=== PATIENT | female | born 1955 | race Caucasian/White ===

== ENCOUNTER → 2018-04-05 14:16 | Outpatient (CLI) | payer OTHER, SELFPAY ==
[2018-04-05 16:25] LABS: AST(SGOT) 105 U/L (15-37); Alanine Aminotransfer ALT/SGPT 116 U/L (13-56); Albumin, Serum 3.5 g/dL (3.2-5.0); Alkaline Phosphatase 262 U/L (45-117); Bilirubin, Direct 0.11 mg/dL (0.00-0.30); CRP 7.51 mg/L (0.0-3.0); GGTP 234 U/L (5-55); Globulin 4.3 g/dL (2.2-4.2); Protein, Total 7.8 g/dL (6.4-8.2)
[2018-04-06 20:15] LABS: Endomysial Antibody IgA Negative (Negative); Immunoglobulin A 123 mg/dL (87-352)
[2018-04-07 08:17] LABS: Anti-Mitochondrial AB 112.8 Units (0.0-20.0)
[2018-04-07 08:19] LABS: Anti-Smooth Muscle ABS 16 Units (0-19); t-Transglutaminase IgA <2 U/mL (0-3)
== END ==
PROVIDERS: Family Provider Family Medicine; PCP Family Medicine; Visit Provider Internal Medicine Gastroenterology
DX: K75.9 Inflammatory liver disease, unspecified (principal)
CPT/HCPCS: 36415; 80076; 82784; 82977; 83516; 86140; 86255

== ENCOUNTER → 2018-04-20 08:56 | Outpatient (CLI) | payer OTHER, SELFPAY ==
[2018-04-20] VITALS (10 sets, daily range): BP systolic 104–151; BP diastolic 47–88; PULSE 77–87; RESP 14–22; TEMP 37.1; O2SAT 90–97; BMI 35.4
--- NOTE | 2018-04-20 09:02 | CT_ITS ---
PROCEDURE: CT DIRECTED CORE LIVER BIOPSY INDICATION: Female, 62 years old. Hepatitis. PHYSICIAN: Dr. Fabian SANCHEZ CONSENT: Written informed consent was obtained having explained the risks, benefits and alternatives in detail with the patient who accepted the risks and agreed to proceed. Laboratory review and clinical assessment was performed. CONSCIOUS SEDATION PROTOCOL: The Drugs used were: 2 mg Versed, IV., and 50 mcg Fentanyl, IV. The sedation time was: 13 minutes. Conscious sedation was started at 10:02 AM and terminated at 10:15 AM. The conscious sedation protocol was independently monitored. RADIATION DOSAGE (If Supplied By Facility): CTDIvol = ( 15 ) mGy, DLP = ( 314.82 ) mGycm Individualized dose optimization techniques were used for this CT. TECHNIQUE: Using CT image guidance with image documentation, a suitable location in the anterior left lobe of the liver was identified. Using an anterior approach, puncture of the liver was uneventful with an 18-gauge core needle system. [id number] core samples were obtained, and submitted in formalin to the pathologist for further assessment. Followup CT scan revealed no distinct sequelae. CT/Biopsy/Inj or Needle Placement IMPRESSION: 1. CT directed core needle biopsy of the liver, using CT image guidance with image documentation as described. 2. Conscious Sedation protocol utilized with independent monitoring. Electronically Signed: Austin Peralta MD at 11:19 EDT Tel [phone], Service support ,
--- NOTE | 2018-04-20 10:15 | LIVB_PTH ---
PATIENT: CELINA STONE LOC: CT U#:[id number] AGE/SX: 70/F ROOM: RE04/20/[address]: Dr. Chad Yarbrough MD : 1955 BED: DIS: SPEC #: [id number] RECD: 04/20/18 10:31 STATUS: CAMERON LAM #: [id number] SERGIO: 04/20/18 10:[address]: Chad Yarbrough DEPT: SURGICAL PATHOLOGY RECD BY: Aramis Velasquez ENTERED: 04/20/18 12:09 SP TYPE: LIVER BX OTHR DR: Trisha Land PA-C Tissues: Liver, NOS Procedures: PAS with Diastase (control) Trichrome (control) Special Stain Group II FE Group II (charge) PAS Stain (control) Surgery Specimen Level V Retic (control) HEADER OPERATION: CT-guided liver biopsy PRE-OP DIAGNOSIS: Hepatitis TISSUE SUBMITTED: Liver 18g x3 MICROSCOPIC DIAGNOSIS Liver, CT-guided core biopsy: Consistent with primary biliary cirrhosis, the florid duct lesion; portal hepatitis. See microscopic description and comment. SJ:lane 04/21/18 COMMENT Correlation with clinical, laboratory studies and appropriate follow up are necessary. Case has been reviewed in consultation with Dr. Vigil who concurs with the above diagnosis. IDC:NAEL MICROSCOPIC DESCRIPTION Slides are reviewed. The specimen shows liver parenchymal tissue with preserved lobular architecture. The hepatocytes show reactive changes. Lobular inflammation is noted. Focal granulomas are also noted in the lobules. The portal areas show moderate to marked chronic inflammation and expanded. The inflammatory cell infiltrates predominantly consists of lymphocytes, a few plasma cells and eosinophils. Bile duct damage is noted. Significant ductular proliferation is not seen. Piecemeal necrosis is also noted. Iron stain show absent iron. PAS stain with and without diastase do not show any abnormal accumulation of protein. Reticulin stain is unremarkable. Trichrome stain highlights the expanded portal area and also shows focal bridging fibrosis. Obvious cirrhosis is not seen. GROSS DESCRIPTION Received in fixative is one container labeled with the patient's name and designated liver. The specimen consists of three elongated pieces of serrano soft tissue measuring 1.5 to 2 cm in length and 0.1 cm in diameter. The specimen is totally submitted in one cassette. / SJ:lane 04/20/18 TC:3 CPT: 41521, 44166 x5
== END ==
PROVIDERS: Family Provider Family Medicine; PCP Family Medicine; Visit Provider Internal Medicine Gastroenterology
DX: K75.9 Inflammatory liver disease, unspecified (principal); K58.0 Irritable bowel syndrome with diarrhea; F41.9 Anxiety disorder, unspecified; F32.9 Major depressive disorder, single episode, unspecified; Z79.899 Other long term (current) drug therapy; F17.200 Nicotine dependence, unspecified, uncomplicated
CPT/HCPCS: 47000; 77012; 88307; 88313; 99156; J7040; A4216

== ENCOUNTER → 2018-08-04 15:33 | Outpatient (CLI) | payer OTHER, SELFPAY ==
[2018-08-04 17:50] LABS: AST(SGOT) 22 U/L (15-37); Alanine Aminotransfer ALT/SGPT 30 U/L (13-56); Albumin, Serum 3.7 g/dL (3.2-5.0); Alkaline Phosphatase 152 U/L (45-117); Bilirubin, Direct 0.07 mg/dL (0.00-0.30); GGTP 43 U/L (5-55); Globulin 3.8 g/dL (2.2-4.2); Protein, Total 7.5 g/dL (6.4-8.2)
[2018-08-04 18:18] LABS: Hematocrit 44.1 % (37-47); Hemoglobin 14.1 g/dl (12.0-15.0); Mean Corpuscular Hgb 28.4 pg (27.0-32.0); Mean Corpuscular Volume 88.9 fL (81-99); Mean Platelet Vol. 11.7 fl (6.2-12.0); Platelet Count 340 K/mm3 (150-450); RBC Distribution Width CV 14.5 % (11.6-14.6); RBC Distribution Width SD 46.9 fl (35.1-43.9); Red Blood Count 4.96 M/mm3 (4.2-5.4); White Blood Count 9.2 K/mm3 (4.4-11.0)
[2018-08-04 18:32] LABS: Scan Indicated on CBC? Y/N NO
[2018-08-04 20:32] LABS: Erythrocyte Sedimentation Rate 20 mm/hr (0-30)
== END ==
PROVIDERS: Family Provider Family Medicine; PCP Family Medicine; Referring Provider Internal Medicine Gastroenterology; Visit Provider Internal Medicine Gastroenterology
DX: K74.3 Primary biliary cirrhosis (principal)
CPT/HCPCS: 36415; 80076; 82977; 85027; 85652

== ENCOUNTER → 2019-01-31 | Outpatient (CLI) | payer OTHER, SELFPAY ==
[2019-01-31 16:04] LABS: Hematocrit 42.9 % (37-47); Hemoglobin 13.9 g/dl (12.0-15.0); Mean Corp Hgb Conc 32.4 g/gl (32-36); Mean Corpuscular Hgb 28.3 pg (27.0-32.0); Mean Corpuscular Volume 87.2 fL (81-99); Mean Platelet Vol. 10.7 fl (6.2-12.0); Platelet Count 357 K/mm3 (150-450); RBC Distribution Width CV 14.2 % (11.6-14.6); RBC Distribution Width SD 45.1 fl (35.1-43.9); Red Blood Count 4.92 M/mm3 (4.2-5.4); White Blood Count 7.4 K/mm3 (4.4-11.0)
[2019-01-31 16:05] LABS: Scan Indicated on CBC? Y/N NO
[2019-01-31 16:10] LABS: AST(SGOT) 21 U/L (15-37); Alanine Aminotransfer ALT/SGPT 29 U/L (13-56); Albumin, Serum 3.5 g/dL (3.2-5.0); Alkaline Phosphatase 135 U/L (45-117); Bilirubin, Direct 0.09 mg/dL (0.00-0.30); GGTP 33 U/L (5-55); Globulin 3.7 g/dL (2.2-4.2); Protein, Total 7.2 g/dL (6.4-8.2)
== END | disposition home or self-care (01) ==
LOC: MTLAB 13:47
PROVIDERS: Family Provider Family Medicine; PCP Family Medicine; Referring Provider Internal Medicine Gastroenterology; Visit Provider Internal Medicine Gastroenterology
DX: K74.3 Primary biliary cirrhosis (principal)
CPT/HCPCS: 36415; 80076; 82977; 85027

== ENCOUNTER → 2019-05-28 11:13 | Outpatient (CLI) | payer MEDICARE, BC, SELFPAY ==
[2018-04-20 09:27] VITALS: BMI 35.4
[2019-05-28 12:24] LABS: Hematocrit 45.8 % (37-47); Hemoglobin 14.8 g/dL (12.0-15.0); Mean Corp Hgb Conc 32.3 g/dL (32-36); Mean Corpuscular Hgb 28.5 pg (27.0-32.0); Mean Corpuscular Volume 88.1 fL (81-99); Mean Platelet Vol. 10.6 fl (6.2-12.0); Platelet Count 335 K/mm3 (150-450); RBC Distribution Width CV 13.8 % (11.6-14.6); RBC Distribution Width SD 44.4 fl (35.1-43.9); White Blood Count 6.7 K/mm3 (4.4-11.0)
[2019-05-28 13:31] LABS: AST(SGOT) 22 U/L (15-37); Alanine Aminotransfer ALT/SGPT 26 U/L (13-56); Albumin, Serum 3.6 g/dL (3.2-5.0); Alkaline Phosphatase 155 U/L (45-117); GGTP 31 U/L (5-55); Globulin 3.8 g/dL (2.2-4.2); Protein, Total 7.4 g/dL (6.4-8.2)
== END ==
PROVIDERS: Family Provider Family Medicine; PCP Family Medicine; Referring Provider Internal Medicine Gastroenterology; Visit Provider Internal Medicine Gastroenterology
DX: K74.3 Primary biliary cirrhosis (principal)
CPT/HCPCS: 36415; 80076; 82977; 85027

== ENCOUNTER 2021-11-18 09:37 | Outpatient (CLI) | payer MEDICARE, BC, SELFPAY ==
--- NOTE | 2021-11-18 09:43 | US_ITS ---
STUDY: ABDOMINAL ULTRASOUND - RIGHT UPPER QUADRANT REASON FOR VISIT: Female, 66 years old PBC TECHNIQUE: Ultrasound evaluation of the right upper quadrant was performed with real-time and static neal-scale imaging. TECHNICAL QUALITY: Adequate. COMPARISON: None. FINDINGS: Liver: The liver measures 16 cm. There is increased echogenicity consistent with fatty infiltration. The bile ducts are within normal limits. There is hepatic color flow. The direction of portal flow is hepatopetal. There is no demonstrated mass lesion. Gallbladder: Normal distended gallbladder. The gallbladder wall measures 2.3 mm. There is a negative sonographic Barcenas''s sign. There is no pericholecystic fluid. There are no gallstones. Common Bile Duct (C.B.D.): The common bile duct measures 4.3 mm. Pancreas: Normal size of the head, body and tail of the pancreas. There is increased echogenicity of the pancreas. There is no demonstrated pancreatic mass or cyst. Right Kidney: Normal size of the right kidney. The right kidney measures 11.1 cm x 5.8 cm x 3.9 cm. Normal renal cortex. The right cortex measures 1.2 cm. There is no demonstrated renal mass or cyst. There is no right hydronephrosis. IMPRESSION: Fatty infiltration of the liver. Electronically Signed: Austin Peralta MD at 12:54 EST , STUDY: ABDOMINAL ULTRASOUND - ELASTOGRAPHY REASON FOR VISIT: Female, 66 years old. Primary biliary cirrhosis. TECHNIQUE: Liver stiffness measurements were obtained on a [employer] 85 ultrasound machine using a CA 1-7 probe following the SRU guidelines. 3 measurements were obtained using a 2-D-SWE method. TheIQR/M was 7% suggesting a quality data set. TECHNICAL QUALITY: Adequate. COMPARISON: Comparison is made with prior study done earlier today. FINDINGS: Liver: Fatty infiltration of the liver. Median liver stiffness measured 9.2 kPa. US/Abdomen Limited IMPRESSION: Liver stiffness measures 9.2 kPa compatible with F2/F3 Metavir score. Electronically Signed: Austin Peralta MD at 12:55 EST ,
== END 2021-11-18 23:59 | disposition home or self-care (01) ==
LOC: US 09:39
PROVIDERS: PCP Family Medicine; Referring Provider Internal Medicine Gastroenterology; Visit Provider Internal Medicine Gastroenterology
DX: K74.3 Primary biliary cirrhosis (principal)
CPT/HCPCS: 76705; 76981

== ENCOUNTER → 2024-02-20 | Outpatient (CLI) | payer MEDICARE, BC, SELFPAY ==
--- NOTE | 2024-02-20 10:22 | US_ITS ---
STUDY: ABDOMINAL ULTRASOUND - RIGHT UPPER QUADRANT REASON FOR VISIT: Female, 68 years old Primary biliary cirrhosis TECHNIQUE: Ultrasound evaluation of the right upper quadrant was performed with real-time and static neal-scale imaging. TECHNICAL QUALITY: Adequate. COMPARISON: Comparison is made with prior study dated November 18, 2021. FINDINGS: Liver: The liver is enlarged and measures 18.1 cm. There is increased echogenicity consistent with fatty infiltration. The bile ducts are within normal limits. There is hepatic color flow. The direction of portal flow is hepatopetal. There is no demonstrated mass lesion. Gallbladder: Normal distended gallbladder. The gallbladder wall measures 2.4 mm. There is a negative sonographic Barcenas''s sign. There is no pericholecystic fluid. There are no gallstones. Common Bile Duct (C.B.D.): The common bile duct measures 3.2 mm. Pancreas: Normal size of the head, body and tail of the pancreas. There is increased echogenicity of the pancreas. There is no demonstrated pancreatic mass or cyst. Right Kidney: Normal size of the right kidney. The right kidney measures 11.3 cm x 4.4 cm x 4.5 cm. Normal renal cortex. The right cortex measures 1.3 cm. There is no demonstrated renal mass or cyst. There is no right hydronephrosis. US/Abdomen Limited IMPRESSION: Mild hepatomegaly and fatty infiltration of the liver. Electronically Signed: Austin Peralta MD at 12:37 EDT ,
== END | disposition home or self-care (01) ==
PROVIDERS: PCP Family Medicine; Referring Provider Family Medicine; Visit Provider Family Medicine
DX: K74.3 Primary biliary cirrhosis (principal)
CPT/HCPCS: 76705

== ENCOUNTER → 2024-03-13 | Outpatient (CLI) | payer MEDICARE, BC, SELFPAY ==
[2024-03-13 18:13] LABS: Erythrocyte Sedimentation Rate 11 mm/hr (0-30)
[2024-03-13 18:46] LABS: AST(SGOT) 17 U/L (15-37); Alanine Aminotransfer ALT/SGPT 18 U/L (13-56); Albumin, Serum 3.5 g/dL (3.2-5.0); Alkaline Phosphatase 152 U/L (45-117); Globulin 3.5 g/dL (2.2-4.2)
[2024-03-15 08:12] LABS: GGTP 16 IU/L (0-60)
== END | disposition home or self-care (01) ==
LOC: MTLAB 15:29
PROVIDERS: PCP Family Medicine; Referring Provider Internal Medicine Gastroenterology; Visit Provider Internal Medicine Gastroenterology
DX: K74.3 Primary biliary cirrhosis (principal)
CPT/HCPCS: 36415; 80076; 82977; 85652

== ENCOUNTER → 2024-08-10 | Outpatient (CLI) | payer MEDICARE, BC, SELFPAY ==
--- NOTE | 2024-08-10 09:56 | US_ITS ---
STUDY: ABDOMINAL ULTRASOUND - RIGHT UPPER QUADRANT; ELASTOGRAPHY REASON FOR VISIT: Female, 69 years old. Fatty infiltration of the liver. TECHNIQUE: Ultrasound evaluation of the right upper quadrant was performed with real-time and static neal-scale imaging. Point quantification shear wave elastography was performed ([employer]). TECHNICAL QUALITY: Adequate. COMPARISON: Comparison is made with prior study dated February 20, 2024. FINDINGS: Liver: The liver measures 15.5 cm. There is increased echogenicity consistent with fatty infiltration. The bile ducts are within normal limits. There is hepatic color flow. The direction of portal flow is hepatopetal. There is no demonstrated mass lesion. Median liver stiffness measured 8.3 kPa. Gallbladder: Normal distended gallbladder. The gallbladder wall measures 2.0 mm. There is a negative sonographic Barcenas''s sign. There is no pericholecystic fluid. There are no gallstones. Common Bile Duct (C.B.D.): The common bile duct measures 5.2 mm. Pancreas: There is normal echogenicity of the visualized pancreas. There is no demonstrated pancreatic mass or cyst. Right Kidney: Normal size of the right kidney. The right kidney measures 11.1 cm x 5.3 cm x 4.2 cm. Normal renal cortex. The right cortex measures 1.3 cm. There is no demonstrated renal mass or cyst. There is no right hydronephrosis. US/ABD Limited w/ Elastography IMPRESSION: 1. Liver stiffness measures 8.3 kPa compatible with F2-F3 (Mild to moderate liver fibrosis) Metavir score. Electronically Signed: Austin Peralta MD at 9:20 EST ,
== END | disposition home or self-care (01) ==
LOC: US 09:46
PROVIDERS: PCP Family Medicine; Referring Provider Internal Medicine Gastroenterology; Visit Provider Internal Medicine Gastroenterology
DX: K74.3 Primary biliary cirrhosis (principal); K76.0 Fatty (change of) liver, not elsewhere classified
CPT/HCPCS: 76705; 76981